=== PATIENT | male | born 1970 | race Caucasian/White ===

== ENCOUNTER 2016-06-18 16:44 | Emergency (ER) | payer SELFPAY ==
[2016-06-18] MEDS ORDERED: HYDROcodone/Acetaminophen 10/325 mg Tablet ONE (17:04)
[2016-06-18] MEDS ORDERED: Naproxen 500 MG TAB ONE (17:04)
--- NOTE | 2016-06-18 17:16 | RAD ---
RIGHT MIDDLE DIGIT RADIOGRAPHS 06/18/16 PROVIDED CLINICAL HISTORY: Right middle pain status post injury. FINDINGS: No evidence for fracture or other acute osseous abnormality. If there is persistent clinical concern , conservative management and followup imaging are advised. IMPRESSION: As above. POS: KIM
--- NOTE | 2016-06-18 17:32 | ERRECORD ---
[facility] EMERGENCY RECORD HPI HAND (16:59 LLDO) CHIEF COMPLAINT: Patient presents for evaluation of decreased range of motion, Patient presents for evaluation of decreased use, Patient presents for evaluation of injury, Patient presents for evaluation of pain, Patient presents for evaluation of tenderness, Patient presents for evaluation of swelling, Patient presents for evaluation of see triage note. pain shoots up arm to elbow. right handed. no open wounds. swollen and ecchymotic across base of nail. 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 MECHANISM OF INJURY: Known mechanism, Mechanism of injury: Blunt trauma, Mechanism of injury: Crushing injury, No alcohol use associated with this incident, No drug use associated with this incident, No domestic violence associated with this incident. LOCATION: Symptoms are localized. QUALITY: Pain is dull in nature, described as aching, described as BECOMES SHARP WITH MOVEMENT OR PALPATION. SEVERITY: Maximum severity of symptoms severe, Currently symptoms are severe. TIME COURSE: Sudden onset of symptoms, There has been no change in the patient's symptoms over time, are constant. ASSOCIATED WITH: No associated symptoms, No symptoms of compartment syndrome. EXACERBATED BY: Patient's condition exacerbated by flexion of fingers, Patient's condition exacerbated by movement, Patient's condition exacerbated by GRIPPING AND/OR PALPATION. RELIEVED BY: Patient's condition relieved by elevation, Patient's condition relieved by remaining still, Patient's condition relieved by rest. ROS CONSTITUTIONAL: Negative constitutional review of systems. (17:04 LLDO) EYES: Negative eye review of systems, Historian denies eye pain, denies eye redness, denies eye discharge. (17:07 LLDO) ENT: Negative ears, nose, throat review of systems, Historian denies otalgia, denies rhinorrhea, denies sinus pain, denies sore throat. (17:07 LLDO) MUSCULOSKELETAL: Historian reports arthralgias, reports injury, reports joint stiffness, reports joint swelling, reports myalgias. ONLY IN HPI. (17:04 LLDO) NEUROLOGIC: Negative neurologic review of systems, Historian denies confusion, denies focal weakness, denies mental status changes, denies sensory changes. (17:07 LLDO) ALLERGIC/IMMUNOLOGIC: Normal allergy/immunologic system review, Historian denies eczema, denies environmental allergies, denies food allergies. (17:07 LLDO) PSYCHIATRIC: Negative psychiatric review of systems, Historian &a-1R&a+25V*p+0X*u9328H*c202B*c15G*c2P*p-0X&a-25V&a+1R Name: Rusty Sewell : 1970 M46 MedRec: [id number] AcctNum: [id number] Prepared: Kristen Jun 18, 2016 17:41 by Interface Page 1 of 3 pMD [facility] EMERGENCY RECORD denies alcohol abuse, denies anxiety, denies depression, denies drug abuse, denies hallucinations. (17:07 LLDO) NOTES: All systems reviewed, negative except as described above. (17:04 LLDO) PAST MEDICAL HISTORY MEDICAL HISTORY: Tetanus immunization up to date, Date of immunization: 3 1/2 YEARS AGO. (16:58 BPHI) MALE SURGICAL HISTORY: HERNIATED DISC REPAIR. (16:58 BPHI) SOCIAL HISTORY: Patient drinks socially, Patient denies drug use, Patient currently uses tobacco, smokes cigarettes. (16:58 BPHI) NOTES: Nursing records reviewed, Agree with nursing records, Medication list reviewed. (17:06 LLDO) KNOWN ALLERGIES No recorded allergies CURRENT MEDICATIONS No recorded medications VITAL SIGNS (16:53 BPHI) VITAL SIGNS: BP: 140/89 (Right Arm), Pulse: 88 (Regular), Resp: 18 (Non-Labored), Pain: 10, O2 sat: 99 on Room Air, Time: 06/18/2016 16:53. PHYSICAL EXAM CONSTITUTIONAL: Vital Signs Reviewed, Patient afebrile, Pulse normal, Blood pressure normal, Respiratory rate normal, Patient appears, uncomfortable, Patient appears, in severe pain distress, Patient alert and oriented to person, place and time, Nursing notes reviewed. (17:04 LLDO) HEAD: Head exam normal, Head exam included findings of head atraumatic, normocephalic. (17:07 LLDO) EYES: Eye exam normal, Eye exam included findings of eyelids normal to inspection, Pupils equally round and reactive to light, Extraocular muscles intact. (17:07 LLDO) ENT: ENT exam normal, Ear exam normal, Nose exam normal. (17:07 LLDO) NECK: Neck exam normal, Neck exam included findings of normal range of motion, Trachea midline, no meningeal signs, no tenderness. (17:07 LLDO) BACK: Back exam normal, Back exam included findings of normal inspection, range of motion normal. (17:07 LLDO) UPPER EXTREMITY: Upper extremity exam included findings of inspection abnormal, contusions present, Range of motion limited, Right hand:, Radial pulse normal, Ulnar pulse normal, Brachial pulse normal, capillary refill less than 2 seconds, distal motor intact, distal sensory intact, no cyanosis, &a-1R&a+25V*p+0X*k3010K*c202B*c15G*c2P*p-0X&a-25V&a+1R Name: Rusty Sewell : 1970 M46 MedRec: [id number] AcctNum: [id number] Prepared: Kristen Jun 18, 2016 17:41 by Interface Page 2 of 3 pMD [facility] EMERGENCY RECORD no clubbing, no edema, Hand ecchymosis, Hand hematoma, Swelling of the hand noted, Hand tenderness, right hand, see hpi. most pain in area of dip joint, left 3rd. (17:04 LLDO) LOWER EXTREMITY: Lower extremity exam normal, Lower extremity exam included findings of inspection normal, Range of motion normal. (17:07 LLDO) NEURO: Neuro exam normal, Neuro exam findings include patient oriented to person, place and time, Speech normal, [place] coma scale 15. (17:07 LLDO) SKIN: Skin exam normal, Skin exam included findings of skin warm, dry, and normal in color, no rash. (17:07 LLDO) PSYCHIATRIC: Psychiatric exam normal, Psychiatric exam included findings of patient oriented to person place and time, Normal affect, Judgment normal. (17:07 LLDO) MEDICATION ADMINISTRATION SUMMARY Drug Name: [place], Dose Ordered: 10-325 mg, Route: Oral, Status: Given, Time: 17:06/18/2016, Drug Name: Naprosyn, Dose Ordered: 500 mg, Route: Oral, Status: Given, Time: 17:06/18/2016, Detailed record available in Medication Service section. PROBLEM LIST No recorded problems DIAGNOSIS (17:18 LLDO) FINAL: PRIMARY: Finger contusion with nail involvement. PRESCRIPTION (17:20 LLDO) naproxen: TABLET : 500 mg : ORAL : Quantity: 1 Unit: tab(s) Route: ORAL Schedule: once a day (at bedtime) Dispense: 30 May substitute. Refills: No Refills . NOTES: take one of these daily for 10-14 days. use the tylenol with codeine for breakthrough pain No Refills. Tylenol-Codeine #3: TABLET : 300 mg-30 mg : ORAL : Quantity: 1-2 Unit: tab(s) Route: ORAL Schedule: every 4 hours prn Dispense: 24 Unit: tab(s) May substitute. Refills: No Refills . NOTES: No Refills. DISPOSITION PATIENT: Disposition Type: Discharge, Disposition: *Discharge Home. (17:18 LLDO) Patient left the department. (17:34 BPHI) De Jesus: BPHI=ANGUS Jaimes, Marcia LLDO=MD Jesse, Stevan &a-1R&a+25V*p+0X*f5780W*c202B*c15G*c2P*p-0X&a-25V&a+1R Name: Rusty Sewell : 1970 M46 MedRec: [id number] AcctNum: [id number] Prepared: Kristen Jun 18, 2016 17:41 by Interface Page 3 of 3 pMD MTDD
--- NOTE | 2016-06-18 17:39 | PICIS ---
[facility] (WedJun 18, 2016 16:54 BPHI) TRIAGE NOTES: SLAMMED RIGHT MIDDLE FINGER IN CAR DOOR AT 0700 THIS MORNING. (WedJun 18, 2016 16:54 BPHI) PATIENT: AGE: 46, GENDER: male, : Kristen 1970, TIME OF GREET: WedJun 18, 2016 16:45, PREFERRED LANGUAGE: Hungarian, ETHNICITY: Not or , ECODE BILLING MAP: [facility], SSN: [id number], Zip Code: [address], KG WEIGHT: 83.91, PHONE: , , , PERSON ID: [id number], PCP: none. (WedJun 18, 2016 16:54 BPHI) NAME: Rusty Sewell (16:54) COMPLAINT: PAINFUL FINGER ON RIGHT HAND. (WedJun 18, 2016 16:54 BPHI) ADMISSION: URGENCY: 4 Non Urgent, ADMISSION SOURCE: Home, TRANSPORT: CAR, BED: ED -05. (WedJun 18, 2016 16:54 BPHI) ASSESSMENT: Assessment: RIGHT MIDDLE FINGER PAIN, Symptoms began 0700 THIS AM. (16:58 BPHI) PAIN: Patient complains of pain described as, on a scale 0-10 patient rates pain as 10, Location RIGHT MIDDLE FINGER, Pain is constant, No efforts tried to relieve symptoms. (16:58 BPHI) IMMUNIZATIONS: Tetanus immunization up to date. (16:58 BPHI) SIRS SCORING: Heart Rate 55-109 (0), Temp range 96.8-101.1 (0), respiratory rate 12-24 (0), Mental Status altered: no (0). (16:58 BPHI) TRIAGE SCREENING: Patient denies suicidal ideation, Patient denies presence of domestic violence. (16:58 BPHI) PROVIDERS: TRIAGE NURSE: Marcia Jaimes RN. (WedJun 18, 2016 16:54 BPHI) VITAL SIGNS: BP 140/89, (Right Arm), Pulse 88, (Regular), Resp 18, (Non-Labored), Pain 10, O2 Sat 99, on Room Air, Time 06/18/2016 16:53. (16:53 BPHI) KNOWN ALLERGIES No recorded allergies CURRENT MEDICATIONS No recorded medications VITAL SIGNS VITAL SIGNS: BP: 140/89 (Right Arm), Pulse: 88 (Regular), Resp: 18 (Non-Labored), Pain: 10, O2 sat: 99 on Room Air, Time: 06/18/2016 16:53. (16:53 BPHI) Pulse: 78, Resp: 18, Temp: 98.5, Pain: 7, O2 sat: 99 on RA, Time: 06/18/2016 17:20. (17:20 BPHI) NURSING ASSESSMENT: EXTREMITY UPPER TRAUMA (16:59 BPHI) CONSTITUTIONAL: Patient arrives ambulatory, Gait steady, History obtained from patient, Patient appears, in distress due to pain, Patient cooperative, Patient alert, Oriented to person, &a-1R&a+25V*p+0X*h2766C*c202B*c15G*c2P*p-0X&a-25V&a+1R Name: Rusty Sewell : 1970 M46 MedRec: [id number] AcctNum: [id number] Prepared: [facility] Jun 18, 2016 17:48 by Interface Page 1 of 7 pMD [facility] EM[facility] RECORD place and time, Skin warm, Skin dry, Skin normal in color, Mucous membranes pink, Mucous membranes moist, Patient is well-groomed, Patient complains of RIGHT MIDDLE FINGER PAIN, PT REPORTS HE SLAMMED HIS RIGHT MIDDLE FINGER IN HIS CAR DOOR THIS MORNING. DENIES TAKING ANYTHING FOR PAIN THUS FAR. HAS CONSUMED 2 BEER THIS EVENING. MECHANISM OF INJURY: Mechanism of injury crush injury, by car door. PAIN: aching pain, crushing pain, RIGHT MIDDLE FINGER, Onset of pain 0700 THIS MORNING, on a scale 0-10 patient rates pain as 10. NONVERBAL PAIN: Non-Verbal complaints present with movement (1), Facial Grimaces present at rest (1), Facial grimaces present with movement (1), Bracing present with movement (1), Rubbing present at rest (1), Rubbing present with movement (1), Result: 6. LEFT UPPER EXTREMITY: Left upper extremity assessment findings include capillary refill less than 2 seconds, Skin color normal to hand, Skin temperature to hand warm, Distal sensation intact, Muscle tone normal. RIGHT UPPER EXTREMITY: Right upper extremity assessment findings include capillary refill less than 2 seconds, Skin color normal to hand, Skin temperature to hand warm, Distal sensation intact, Muscle tone normal, Inspection findings include signs of trauma, to RIGHT MIDDLE FINGER, Inspection findings include swelling, to RIGHT MIDDLE FINGER, Notes: BRUISING AT BASE OF NAIL ON RIGHT MIDDLE FINGER. PT DENIES ANY OTHER DIGIT INVOLVEMENT. EXTREMITY UPPER TRAUMA: Right upper extremity assessment findings include signs of trauma, SWELLING/PAIN/BRUISING TO RIGHT MIDDLE FINGER. NURSING PROCEDURE: DISCHARGE NOTE (17:20 BPHI) DISCHARGE: Patient discharged to home, ambulating without assistance, family driving, accompanied by //partner, Summary of Care printed/ provided, Patient requested and was provided an electronic copy of Discharge Instructions, Discharge instructions given to patient, Prescriptions given and instructions on side effects given, Name of prescription(s) given: TYLENOL #3, NAPROXEN, Above person(s) verbalized understanding of discharge instructions and follow-up care, Patient instructed not to drive home, Patient treated and evaluated by physician. BELONGINGS: Belongings remain with patient, Valuables remain with patient. NOTES: Notes: LEFT ER WITH EVEN AND STEADY GAIT, NAD. ENCOURAGED TO FILL AND TAKE PRESCRIBED MEDICATIONS DIRECTED, F/U WITH PCP AND RETURN TO THE ER FOR ANY NEW AND/OR WROSENING SYMPTOMS. VITAL SIGNS: Pulse: 78, Resp: 18, Temp: 98.5, Pain: 7, O2 sat: 99, on: RA. &a-1R&a+25V*p+0X*c3439W*c202B*c15G*c2P*p-0X&a-25V&a+1R Name: Donato Rusty Porfirio : 1970 M46 MedRec: [id number] AcctNum: [id number] Prepared: Kristen Jun 18, 2016 17:48 by Interface Page 2 of 7 pMD [facility] EMERGENC[facility] RECORD NURSING PROCEDURE: SPLINTING (17:20 BPHI) PATIENT IDENTIFIER: Patient actively involved in identification process, Patient's identity verified by patient stating name, Patient's identity verified by hospital ID bracelet. SPLINTING: Splinting indicated for pain control, Splint applied to, the third finger, on the right hand, aluminum finger splint applied, 2" COBAN, Last tetanus shot received less than 5 years ago, Notes: SLING ALSO PLACED ON PT'S RIGHT ARM. FOLLOW-UP: After procedure, capillary refill less than 2 seconds, After procedure, distal circulation intact, After procedure, distal motor function intact, After procedure, distal sensation intact, After procedure, distal pulses present. NURSING PROCEDURE: TRANSPORT TO TESTS PATIENT IDENTIFIER: Patient actively involved in identification process, Patient's identity verified by patient stating name, Patient's identity verified by hospital ID brabaltazar. (17:02 BPHI) TRANSPORT TO TESTS: Transport indicated to facilitate diagnosis, Patient transported to x-ray, ambulatory, Accompanied by x-ray plant technician. (17:02 BPHI) FOLLOW-UP: After procedure, patient returned to emergency department. (17:10 BPHI) ORDER DETAILS Order Name: Miscellaneous Nurse Order(s), Status: Done, Time: 17:06/18/2016, User: FREDI, - Ordered for: MD Molina Lloyd, - Entered by: MD Molina Lloyd [facility] Jun 18, 2016 17:17, - Quantity: 1, Order Name: SPLINT (PRE-VAN), Status: Done, Time: 17:06/18/2016, User: FREDI, - Ordered for: MD Molina Lloyd, - Entered by: [facility] Jun [facility], 2016 17:17, - Quantity: 1, Order Name: XR Finger(s) Rt Min 2 View, Status: Active, Time: 16:55 06/18/2016, User: FREDI, - Ordered for: MD Molina Lloyd, - Entered by: ANGUS Jaimes, [facility] Jun 18, 2016 16:55, - Quantity: 1. MEDICATION ADMINISTRATION SUMMARY Drug Name: Rozet, Dose Ordered: 10-325 mg, Route: Oral, Status: Given, Time: 17:05 06/18/2016, Drug Name: Naprosyn, Dose Ordered: 500 mg, Route: Oral, Status: Given, Time: 17:05 06/18/2016, Detailed record available in Medication Service section. &a-1R&a+25V*p+0X*h3077D*c202B*c15G*c2P*p-0X&a-25V&a+1R Name: Rusty Sewell : 1970 M46 MedRec: [id number] AcctNum: [id number] Prepared: WedJun 18, 2016 17:48 by Interface Page 3 of 7 pMD [facility] EMERG[facility] RECORD MEDICATION SERVICE (17:05 LLDO) Naprosyn: Order: Naprosyn (naproxen) - Dose: 500 mg : Oral Schedule: Now Ordered by: Stevan Molina MD Entered by: Stevan Molina MD [facility] Jun 18, 2016 17:02 , Acknowledged by: Marcia Jaimes RN [facility] Jun 18, 2016 17:03 Documented as given by: Marcia Jaimes RN [facility] Jun 18, 2016 17:05 Patient, Medication, Dose, Route and Time verified prior to administration. Amount given: 1 TAB, Site: Medication administered P.O., Correct patient, time, route, dose and medication confirmed prior to administration, Patient advised of actions and side-effects prior to administration, Allergies confirmed and medications reviewed prior to administration, Patient in position of comfort, Cart in lowest position. HPI HAND (16:59 LLDO) CHIEF COMPLAINT: Patient presents for evaluation of decreased range of motion, Patient presents for evaluation of decreased use, Patient presents for evaluation of injury, Patient presents for evaluation of pain, Patient presents for evaluation of tenderness, Patient presents for evaluation of swelling, Patient presents for evaluation of see triage note. pain shoots up arm to elbow. right handed. no open wounds. swollen and ecchymotic across base of nail. 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 MECHANISM OF INJURY: Known mechanism, Mechanism of injury: Blunt trauma, Mechanism of injury: Crushing injury, No alcohol use associated with this incident, No drug use associated with this incident, No domestic violence associated with this incident. LOCATION: Symptoms are localized. QUALITY: Pain is dull in nature, described as aching, described as BECOMES SHARP WITH MOVEMENT OR PALPATION. SEVERITY: Maximum severity of symptoms severe, Currently symptoms are severe. TIME COURSE: Sudden onset of symptoms, There has been no change in the patient's symptoms over time, are constant. ASSOCIATED WITH: No associated symptoms, No symptoms of compartment syndrome. EXACERBATED BY: Patient's condition exacerbated by flexion of fingers, Patient's condition exacerbated by movement, Patient's condition exacerbated by GRIPPING AND/OR PALPATION. RELIEVED BY: Patient's condition relieved by elevation, Patient's condition relieved by remaining still, Patient's condition relieved by rest. ROS CONSTITUTIONAL: Negative constitutional review of systems. (17:04 &a-1R&a+25V*p+0X*x4289U*c202B*c15G*c2P*p-0X&a-25V&a+1R Name: Rusty Sewell : 1970 M46 MedRec: [id number] AcctNum: [id number] Prepared: [facility] Jun 18, 2016 17:48 by Interface Page 4 of 7 pMD [facility] RECORD LLDO) EYES: Negative eye review of systems, Historian denies eye pain, denies eye redness, denies eye discharge. (17:07 LLDO) ENT: Negative ears, nose, throat review of systems, Historian denies otalgia, denies rhinorrhea, denies sinus pain, denies sore throat. (17:07 LLDO) MUSCULOSKELETAL: Historian reports arthralgias, reports injury, reports joint stiffness, reports joint swelling, reports myalgias. ONLY IN HPI. (17:04 LLDO) NEUROLOGIC: Negative neurologic review of systems, Historian denies confusion, denies focal weakness, denies mental status changes, denies sensory changes. (17:07 LLDO) ALLERGIC/IMMUNOLOGIC: Normal allergy/immunologic system review, Historian denies eczema, denies environmental allergies, denies food allergies. (17:07 LLDO) PSYCHIATRIC: Negative psychiatric review of systems, Historian denies alcohol abuse, denies anxiety, denies depression, denies drug abuse, denies hallucinations. (17:07 LLDO) NOTES: All systems reviewed, negative except as described above. (17:04 LLDO) PAST MEDICAL HISTORY MEDICAL HISTORY: Tetanus immunization up to date, Date of immunization: 3 1/2 YEARS AGO. (16:58 BPHI) MALE SURGICAL HISTORY: HERNIATED DISC REPAIR. (16:58 BPHI) SOCIAL HISTORY: Patient drinks socially, Patient denies drug use, Patient currently uses tobacco, smokes cigarettes. (16:58 BPHI) NOTES: Nursing records reviewed, Agree with nursing records, Medication list reviewed. (17:06 LLDO) PHYSICAL EXAM CONSTITUTIONAL: Vital Signs Reviewed, Patient afebrile, Pulse normal, Blood pressure normal, Respiratory rate normal, Patient appears, uncomfortable, Patient appears, in severe pain distress, Patient alert and oriented to person, place and time, Nursing notes reviewed. (17:04 LLDO) HEAD: Head exam normal, Head exam included findings of head atraumatic, normocephalic. (17:07 LLDO) EYES: Eye exam normal, Eye exam included findings of eyelids normal to inspection, Pupils equally round and reactive to light, Extraocular muscles intact. (17:07 LLDO) ENT: ENT exam normal, Ear exam normal, Nose exam normal. (17:07 LLDO) NECK: Neck exam normal, Neck exam included findings of normal range of motion, Trachea midline, no meningeal signs, no tenderness. (17:07 LLDO) BACK: Back exam normal, Back exam included findings of normal &a-1R&a+25V*p+0X*t3851H*c202B*c15G*c2P*p-0X&a-25V&a+1R Name: Rusty Sewell : 1970 M46 MedRec: [id number] AcctNum: [id number] Prepared: Kristen Jun 18, 2016 17:48 by Interface Page 5 of 7 pMD [facility] RECORD inspection, range of motion normal. (17:07 LLDO) UPPER EXTREMITY: Upper extremity exam included findings of inspection abnormal, contusions present, Range of motion limited, Right hand:, Radial pulse normal, Ulnar pulse normal, Brachial pulse normal, capillary refill less than 2 seconds, distal motor intact, distal sensory intact, no cyanosis, no clubbing, no edema, Hand ecchymosis, Hand hematoma, Swelling of the hand noted, Hand tenderness, right hand, see hpi. most pain in area of dip joint, left 3rd. (17:04 LLDO) LOWER EXTREMITY: Lower extremity exam normal, Lower extremity exam included findings of inspection normal, Range of motion normal. (17:07 LLDO) NEURO: Neuro exam normal, Neuro exam findings include patient oriented to person, place and time, Speech normal, [place] coma scale 15. (17:07 LLDO) SKIN: Skin exam normal, Skin exam included findings of skin warm, dry, and normal in color, no rash. (17:07 LLDO) PSYCHIATRIC: Psychiatric exam normal, Psychiatric exam included findings of patient oriented to person place and time, Normal affect, Judgment normal. (17:07 LLDO) EVENTS TRANSFER: Triage to Emergency Main ED -05. (WedJun 18, 2016 16:54 BPHI) Removed from Emergency Main ED -05. (17:34 BPHI) PROBLEM LIST No recorded problems DIAGNOSIS (17:18 LLDO) FINAL: PRIMARY: Finger contusion with nail involvement. DISPOSITION PATIENT: Disposition Type: Discharge, Disposition: *Discharge Home. (17:18 LLDO) Patient left the department. (17:34 BPHI) INSTRUCTION (17:20 LLDO) DISCHARGE: CONTUSION FINGER. FOLLOWUP: Follow up with Primary Care Physician in 10 days. SPECIAL: Follow-up with your PCP. PRESCRIPTION (17:20 LLDO) naproxen: TABLET : 500 mg : ORAL : Quantity: 1 Unit: tab(s) Route: ORAL Schedule: once a day (at bedtime) Dispense: 30 May substitute. Refills: No Refills . NOTES: take one of these daily for 10-14 days. use the tylenol with codeine for breakthrough pain &a-1R&a+25V*p+0X*q5361H*c202B*c15G*c2P*p-0X&a-25V&a+1R Name: Rusty Sewell : 1970 M46 MedRec: [id number] AcctNum: [id number] Prepared: WedJun 18, 2016 17:48 by Interface Page 6 of 7 pMD [facility] EMERGENCY RECORD No Refills. Tylenol-Codeine #3: TABLET : 300 mg-30 mg : ORAL : Quantity: 1-2 Unit: tab(s) Route: ORAL Schedule: every 4 hours prn Dispense: 24 Unit: tab(s) May substitute. Refills: No Refills . NOTES: No Refills. IMAGING (17:31 BPHI) *DISCHARGE INSTRUCTIONS RECEIPT: Image captured from scanner. *SUPPLY CHARGE SHEET: Image captured from scanner. DME: Image captured from scanner. ADMIN DIGITAL SIGNATURE: MD Molina Lloyd. (17:21 LLDO) ANGUS Jaimes, Marcia. (17:45 BPHI) De Jesus: BPHI=ANGUS Jaimes, Marcia LLDO=MD Molina Lloyd &a-1R&a+25V*p+0X*n0084G*c202B*c15G*c2P*p-0X&a-25V&a+1R Name: Rusty Sewell Porfirio : 1970 6 MedRec: [id number] AcctNum: [id number] Prepared: WedJun 18, 2016 17:48 by Interface Page 7 of 7 pMD [facility] MEDICATION RECONCILIATION You were seen in the Emergency Department on: WedJun 18, 2016 MEDICATIONS GIVEN WHILE IN THE EMERGENCY DEPARTMENT Naprosyn (naproxen) - Dose: 500 milligram(s) : Oral Rozet (hydrocodone bitartrate/acetaminophen) - Dose: 10-325 milligram(s) : Oral Notes from the emergency department Reviewed with family Reviewed with patient PRESCRIPTIONS (2) Printed (2) naproxen : TABLET : 500 mg : ORAL Quantity: 1, Unit: tab(s), Route: ORAL, Schedule: once a day (at bedtime), Dispense: 30 &a-1R&a+25V*p+0X*j1942O*c202B*c15G*c2P*p-0X&a-25V&a+1R Name: SewellRusty : 1970 M46 MedRec: [id number] AcctNum: [id number] Prepared: WedJun 18, 2016 17:[address] [facility]
== END 2016-06-18 17:20 | disposition home or self-care (01) ==
LOC: MADERS 16:44
DX: S60.131A Contusion of right middle finger with damage to nail, initial encounter (principal); F17.210 Nicotine dependence, cigarettes, uncomplicated; W23.0XXA Caught, crushed, jammed, or pinched between moving objects, initial encounter
CPT/HCPCS: 99283